=== PATIENT | female | born 1930 | race Caucasian/White ===

== ENCOUNTER 2016-09-11 18:56 | Emergency (ER) | payer MEDICARE, OTHER ==
[~2016-09-11 18:56] MED LIST: ADVIL PO; ARMOUR THYRO15 MG PO; ARMOUR THYRO60 MG PO; ASAB PO; CLINDAMAX1 % TOP; CYMBALTA60 PO; DIOVAN HC2 PO; DIOVAN HCT320 MG/25 PO; HALF81 PO; VITAMIN B-122500 MCG SL
== END 2016-09-11 20:08 | disposition home or self-care (01) ==
LOC: ER 18:56
DX: S60.021A Contusion of right index finger without damage to nail, initial encounter (principal); M25.551 Pain in right hip; I10 Essential (primary) hypertension; Z79.82 Long term (current) use of aspirin; Z79.899 Other long term (current) drug therapy; W05.0XXA Fall from non-moving wheelchair, initial encounter
CPT/HCPCS: 73120; 73502-RT; 73552-RT; 99283; A9270-GY